=== PATIENT | female | born 1990 | race African-American/Black ===

== ENCOUNTER 2017-04-27 23:42 | Emergency (ER) | payer OTHER ==
[~2017-04-27] VITALS: Ht 177.8 cm; Wt 120.0 kg
[2017-04-27 23:46] VITALS: BP 194/80; PULSE 93; RESP 15; TEMP 98.4; O2SAT 100
[2017-04-28] MEDS ORDERED: TETANUS/DIPHTHERIA TOXOID ADULT 0.5 ML VIAL IM ONE (00:45)
[2017-04-28 01:17] LABS: AUTOMATED NEUTROPHIL # 4.3 TH/MM3 (1.8-7.7); BASOPHIL # 0.1 TH/MM3 (0-0.2); BASOPHIL % 0.6 % (0.0-2.0); EOSINOPHIL # 0.2 TH/MM3 (0-0.4); HEMATOCRIT 35.3 % (35.0-46.0); HEMO FLAGS DIFF FINAL; LYMPH % 42.8 % (9.0-44.0); LYMPHOCYTE # 3.8 TH/MM3 (1.0-4.8); MEAN CELL VOLUME 82.5 FL (80.0-100.0); MEAN CORPUSCULAR HEMOGLOBIN 26.4 PG (27.0-34.0); MONO % 6.2 % (0.0-8.0); NEUT % 48.4 % (16.0-70.0); PLATELET COUNT 301 TH/MM3 (150-450); RED BLOOD COUNT 4.28 MIL/MM3 (4.00-5.30); RED CELL DISTRIBUTION WIDTH 14.9 % (11.6-17.2)
[2017-04-28 01:36] LABS: ALT (GPT) 16 U/L (10-53); ANION GAP 10 MEQ/L (5-15); AST (GOT) 10 U/L (15-37); BICARBONATE 26.8 MEQ/L (21.0-32.0); BLOOD UREA NITROGEN 9 MG/DL (7-18); CHLORIDE 103 MEQ/L (98-107); GLOMERULAR FILTRATION RATE 84 ML/MIN (>89); POTASSIUM 3.6 MEQ/L (3.5-5.1); SODIUM (NA) 140 MEQ/L (136-145)
[2017-04-28 01:40] LABS: ALKALINE PHOSPHATASE 74 U/L (45-117); BETA HCG QUANT LESS THAN 1 MIU/ML (0-5); TOTAL BILIRUBIN ADULT 0.4 MG/DL (0.2-1.0)
[2017-04-28] MEDS ORDERED: LOPINAVIR/RITONAVIR 200 MG/50 MG TAB PO ONE (02:00)
[2017-04-28] MEDS ORDERED: ZIDOVUDINE 100 MG CAP PO ONE (02:00)
--- NOTE | 2017-04-28 03:15 | PD ---
HPI Chief Complaint: Laceration/Skin Injury Time Seen by Provider: 00:35 Travel History International Travel<30 days: No Contact w/Intl Traveler<30days: No Traveled to known affect area: No History of Present Illness HPI 26-year-old female patient presents to the ER today, patient is a health care worker, had just given a patient heparin and was putting a needle away when she stuck herself in the finger. She denies any other issues or injuries. She immediately washed her hands. Modifying Factors: None Associated Signs & Symptoms: Needle stick injury Risk Factors: None PFSH Past Medical History Asthma: Yes Diminished Hearing: No Medical other: Yes (seasonal allergies) Tetanus Vaccination: < 5 Years Influenza Vaccination: Yes ?: Not LMP: 04/03/2017 Past Surgical History Tonsillectomy: Yes (T&A) Social History Alcohol Use: No Tobacco Use: No Substance Use: No Allergies-Medications (Allergen,Severity, Reaction): Coded Allergies: No Known Allergies (Unverified , 04/27/17) Review of Systems Except as stated in HPI: all other systems reviewed are Neg Physical Exam Narrative GENERAL: Well-nourished, well-developed patient in no acute distress. Awake and oriented 3. SKIN: Focused skin assessment warm/dry. There is a needle stick injury in the left ring finger. Bleeding controlled. HEAD: Normocephalic. EYES: No scleral icterus. No injection or drainage. NECK: Supple, trachea midline. No JVD or lymphadenopathy. CARDIOVASCULAR: Regular rate and rhythm without murmurs, gallops, or rubs. RESPIRATORY: Breath sounds equal bilaterally. No accessory muscle use. GASTROINTESTINAL: Abdomen soft, non-tender, nondistended. MUSCULOSKELETAL: No cyanosis, or edema. BACK: Nontender without obvious deformity. No CVA tenderness. Data Data Last Documented VS Vital Signs Date Time Temp Pulse Resp B/P (MAP) Pulse Ox O2 Delivery O2 Flow Rate FiO2 04/27/17 23:46 98.4 93 15 194/80 (118) 100 Room Air Orders Orders Complete Blood Count With Diff (04/28/17 00:35) Comprehensive Metabolic Panel (04/28/17 00:35) Lipase (04/28/17 00:35) Beta Hcg (Quant/Titer) (04/28/17 00:35) Tetanus/Diphtheria Tox Adult (Tetanus/Di (04/28/17 00:45) Lamivudine (Epivir) (04/28/17 02:00) Zidovudine (Retrovir) (04/28/17 02:00) Lopinavir-Ritonavir 200-50 Mg (Kaletra 2 (04/28/17 02:00) Labs Laboratory Tests Test 04/28/17 00:51 White Blood Count 9.0 TH/MM3 Red Blood Count 4.28 MIL/MM3 Hemoglobin 11.3 GM/DL Hematocrit 35.3 % Mean Corpuscular Volume 82.5 FL Mean Corpuscular Hemoglobin 26.4 PG Mean Corpuscular Hemoglobin Concent 32.0 % Red Cell Distribution Width 14.9 % Platelet Count 301 TH/MM3 Mean Platelet Volume 8.3 FL Neutrophils (%) (Auto) 48.4 % Lymphocytes (%) (Auto) 42.8 % Monocytes (%) (Auto) 6.2 % Eosinophils (%) (Auto) 2.0 % Basophils (%) (Auto) 0.6 % Neutrophils # (Auto) 4.3 TH/MM3 Lymphocytes # (Auto) 3.8 TH/MM3 Monocytes # (Auto) 0.6 TH/MM3 Eosinophils # (Auto) 0.2 TH/MM3 Basophils # (Auto) 0.1 TH/MM3 CBC Comment DIFF FINAL Differential Comment Blood Urea Nitrogen 9 MG/DL Creatinine 0.96 MG/DL Random Glucose 77 MG/DL Total Protein 8.0 GM/DL Albumin 3.9 GM/DL Calcium Level 9.2 MG/DL Alkaline Phosphatase 74 U/L Aspartate Amino Transf (AST/SGOT) 10 U/L Alanine Aminotransferase (ALT/SGPT) 16 U/L Total Bilirubin 0.4 MG/DL Sodium Level 140 MEQ/L Potassium Level 3.6 MEQ/L Chloride Level 103 MEQ/L Carbon Dioxide Level 26.8 MEQ/L Anion Gap 10 MEQ/L Estimat Glomerular Filtration Rate 84 ML/MIN Lipase 96 U/L Human Chorionic Gonadotropin, Quant LESS THAN 1 MIU/ML MDM Medical Decision Making Medical Screen Exam Complete: Yes Emergency Medical Condition: Yes Medical Record Reviewed: Yes Differential Diagnosis Needle stick injury Narrative Course Tetanus shot was updated. And I have talked to the patient regarding the issues. The source patient lab work came back negative for HIV. At this point , it talked to the patient regarding the risk and considering her lower risk, she is agreeable to not doing PEP at this time. She should follow-up with employee med for further evaluation. Return for any signs of infection or new issues as needed. Plan was discussed with her and she states understanding. Diagnosis Primary Impression: Needle stick injury of finger Disposition: 01 DISCHARGE HOME Condition: Stable Juan Luis Poole MD Apr 28, 2017 03:15
== END 2017-04-28 03:21 | disposition home or self-care (01) ==
LOC: NEPE 23:42
DX: S60.945A Unspecified superficial injury of left ring finger, initial encounter (principal); J45.909 Unspecified asthma, uncomplicated; W46.0XXA Contact with hypodermic needle, initial encounter; Y99.0 Civilian activity done for income or pay; Z23 Encounter for immunization
CPT/HCPCS: 80053; 83690; 84702; 85025; 90471

== ENCOUNTER 2017-08-04 07:54 | Emergency (ER) | payer OTHER ==
[~2017-08-04] VITALS: Ht 177.8 cm; Wt 113.5 kg
[2017-08-04 08:04] VITALS: BP 106/77; PULSE 90; RESP 16; TEMP 98.4; O2SAT 100
--- NOTE | 2017-08-04 08:28 | PD ---
HPI Chief Complaint: Injury Time Seen by Provider: 08:28 Travel History International Travel<30 days: No Contact w/Intl Traveler<30days: No Traveled to known affect area: No History of Present Illness HPI 26-year-old female presents emergency department with complaint of a needlestick to her left index finger at approximately 5 AM this morning. She is an employee of [employer]. Accidentally stuck her finger after administering heparin and tripping over the patient shoes. Does not know the source patient HIV or hepatitis status. The patient herself is up-to-date on her tetanus vaccination. She denies being HIV or hepatitis positive. Denies fevers or vomiting. No known aggravating or relieving factors. No known allergies. Has no other medical complaints. No other modifying factors or associated signs and symptoms. PFSH Past Medical History Hx Anticoagulant Therapy: No Asthma: Yes Cardiovascular Problems: No Chemotherapy: No Cerebrovascular Accident: No Diabetes: No Diminished Hearing: No Respiratory: No ?: Not LMP: 07/28/17 Past Surgical History Tonsillectomy: Yes (T&A) Social History Alcohol Use: No Tobacco Use: No Substance Use: No Allergies-Medications (Allergen,Severity, Reaction): Coded Allergies: No Known Allergies (Unverified , 04/27/17) Reported Meds & Prescriptions Reported Meds & Active Scripts Active Reported Multi Vitamin Daily (Multiple Vitamin) 1 Tab Tab 1 Tab PO Amoxicillin 500 Mg Cap 500 Mg PO TID Review of Systems Except as stated in HPI: all other systems reviewed are Neg Physical Exam Narrative GENERAL: Well-nourished, well-developed white female patient, in no acute distress SKIN: Warm and dry. Point, puncture wound to his stool aspect of the left index finger; no erythema, no edema, no drainage. HEAD: Atraumatic. Normocephalic. EYES: Pupils equal and round. No scleral icterus. No injection or drainage. ENT: Mucosa pink and moist. Airway patent. NECK: Trachea midline. CARDIOVASCULAR: Regular rate. RESPIRATORY: No accessory muscle use. MUSCULOSKELETAL: No obvious deformities. No clubbing. No cyanosis. No edema. NEUROLOGICAL: Awake and alert. Oriented 3. No obvious cranial nerve deficits. Motor grossly within normal limits. Normal speech. PSYCHIATRIC: Appropriate mood and affect; insight and judgment normal. Data Data Last Documented VS Vital Signs Date Time Temp Pulse Resp B/P (MAP) Pulse Ox O2 Delivery O2 Flow Rate FiO2 08/04/17 08:15 16 98 Room Air 08/04/17 08:04 98.4 90 106/77 (87) Orders Orders Ed Discharge Order (08/04/17 09:03) MDM Medical Decision Making Medical Screen Exam Complete: Yes Emergency Medical Condition: Yes Medical Record Reviewed: Yes Differential Diagnosis Blood exposure, bodily fluid exposure, needlestick injury Narrative Course 26-year-old female, [employer] employee, with needlestick injury of finger of the left hand and exposure to blood. Blood exposure protocol initiated. Instructed patient to follow-up with employee med. Instructed patient to follow up with primary care provider. Patient verbalizes understanding and agreement with treatment plan. Patient is medically cleared and stable for discharge. Discussed reasons to return to the emergency department. Patient agrees with treatment plan. The patients vital signs are stable and the patient is stable for outpatient follow-up and treatment. Patient discharged home, stable and in no acute distress. Diagnosis Primary Impression: Needlestick injury of finger of left hand Qualified Codes: S61.239A - Puncture wound without foreign body of unspecified finger without damage to nail, initial encounter; W27.3XXA - Contact with needle (sewing), initial encounter Additional Impression: Exposure to blood Referrals: [facility] [employer] ([facility] Human Resources Primary Care Physician Patient Instructions: Body Substance Exposure (ED), General Instructions, Needle Stick Injuries (ED) Additional Instructions: Follow blood exposure protocol instructions Follow-up with employee med Follow-up with primary care Return to emergency department for worsening of symptoms Med/Other Pt SpecificInfo: No Change to Meds, No Meds Exist/No RX given Disposition: 01 DISCHARGE HOME Condition: Stable Marce Corral Aug 04, 2017 08:28
[2017-08-04] MEDS ORDERED: AMOX500C PO (09:04)
[2017-08-04] MEDS ORDERED: MULT1TAB46 PO (09:04)
== END 2017-08-04 09:13 | disposition home or self-care (01) ==
LOC: NEPD 07:54
DX: S61.231A Puncture wound without foreign body of left index finger without damage to nail, initial encounter (principal); Z87.09 Personal history of other diseases of the respiratory system; Z77.21 Contact with and (suspected) exposure to potentially hazardous body fluids; W46.1XXA Contact with contaminated hypodermic needle, initial encounter; Y93.F9 Activity, other caregiving; Y92.239 Unspecified place in hospital as the place of occurrence of the external cause; Y99.0 Civilian activity done for income or pay
CPT/HCPCS: 99282